=== PATIENT | female | born 1950 | race African-American/Black ===

== ENCOUNTER 2016-03-09 11:02 | Emergency (ER) | payer MEDICARE ==
[~2016-03-09] VITALS: Ht 157.5 cm; Wt 63.5 kg
[~2016-03-09 11:02] MED LIST: HYDR-914 PO; SOM350 PO
[2016-03-09 11:10] VITALS: BP 153/108; PULSE 89; RESP 16; TEMP 98.2; O2SAT 99
[2016-03-09] MEDS ORDERED: LIDOCAINE 1% 10 MG/ML, 20 ML MDV INJ ONE (11:45)
[2016-03-09] MEDS ORDERED: HYDROcodone/ACETAMIN 10-325 MG TAB PO ONE (12:30)
[2016-03-09 12:45] VITALS: BP 150/92; PULSE 90; RESP 16; TEMP 98.3; O2SAT 99
== END 2016-03-09 12:45 | disposition home or self-care (01) ==
LOC: SED 11:02
DX: K04.7 Periapical abscess without sinus (principal); G89.29 Other chronic pain; I10 Essential (primary) hypertension; Z88.0 Allergy status to penicillin
CPT/HCPCS: 99283